=== PATIENT | female | born 1935 | race Caucasian/White ===

== ENCOUNTER 2023-02-15 11:13 | Day surgery (SDC) | payer OTHER ==
[2023-02-12 16:12] LABS: Potassium 3.7 mEq/L (3.5-5.1)
--- NOTE | 2023-02-12 16:54 | RAD REPORT ---
EXAM DESCRIPTION: Sri Koch And Wyatt (2 Views)02/12/2023 3:59 pm CLINICAL HISTORY: Lung cancer. Preop COMPARISON: None FINDINGS: Mild elevation left hemidiaphragm Lungs appear clear of acute infiltrate. The heart is normal size. Peribronchial thickening presumably chronic
[2023-02-15] MEDS ORDERED: CEFAZOLIN SODIUM 1 GM/VIAL ONE (11:43)
[2023-02-15] MEDS ORDERED: Ringers Lactate 1,000 ML IV ONE (11:43)
[2023-02-15] MEDS ORDERED: NS 0.9% VIAL 10 ML ONE (12:32)
[2023-02-15] MEDS ORDERED: HEPARIN 5000 UNIT/ML 1 ML VIAL ONE (12:32)
[2023-02-15] MEDS ORDERED: BUPIVACAINE 0.25% PF 10 ML VIAL ONE (12:32)
[2023-02-15] MEDS ORDERED: NA CHLORIDE 0.9% 50 ML ONE (12:33)
--- NOTE | 2023-02-15 13:54 | P.OP ---
Preoperative diagnosis: Need for Chemotherapy Access Postoperative diagnosis: Need for Chemotherapy Access Primary procedure: Placement of Port a Cath Secondary procedure: Flouroscopic guiance with interpretation Anesthesia: GETA + Local Estimated blood loss: <8cc Specimen: none Findings: dark, non-pulsatile blood, dehydrated vessels, pendulous tissue Complications: None Implants: Port a Cath Transferred to: Recovery Room Condition: Good
[2023-02-15] MEDS: HYDROMORPHONE HCL 1 MG/ML INJ ONE ×2 (14:15→14:25)
[2023-02-15 14:21] VITALS: O2SAT 100
[2023-02-15] MEDS ORDERED: ONDANSETRON 4 MG/2 ML VIAL ONE (14:26)
[2023-02-15 14:31] VITALS: TEMP 97.5
--- NOTE | 2023-02-15 14:36 | RAD REPORT ---
EXAM DESCRIPTION: RAD - Chest Single View - 02/15/2023 2:27 pm CLINICAL HISTORY: S/P PORT A CATH PLACEMENT Chest pain. COMPARISON: Chest Pa And Lat (2 Views) dated 02/12/2023 FINDINGS: Portable technique limits examination quality. Right-sided venous catheter has tip in the SVC. No postprocedure pneumothorax present. Moderate left lung interstitial lung opacities noted.
--- NOTE | 2023-02-15 14:57 | RAD REPORT ---
EXAM DESCRIPTION: RAD - Fluoroscopy <1 Hour - 02/15/2023 2:50 pm CLINICAL HISTORY: Venous catheter insertion. PORT INSERTION COMPARISON: No comparisons FINDINGS: Fluoroscopic imaging is submitted from placement of a venous catheter. Details of the pro cedure not available. Fluoroscopy time: 0.3 minutes
[2023-02-15 15:21] VITALS: BP 134/62
--- NOTE | 2023-02-15 17:11 | EKG ---
Test Date: 2023-02-12 Test Time: 15:09:30 Outside Plant Engineer: VIDA MEASUREMENT RESULTS: Intervals: Rate: 94 [place]: 158 QRSD: 90 QT: 358 QTc: 447 [place]: P: 46 [place]: 158 QRS: -51 T: -14 INTERPRETIVE STATEMENTS: Normal sinus rhythm RSR' or QR pattern in V1 suggests right ventricular conduction delay Left anterior fascicular block Voltage criteria for left ventricular hypertrophy Nonspecific ST and T wave abnormality Abnormal ECG No previous ECG available for comparison Electronically Signed On 02-15-23 17:05:54 CDT by Babak Jaimes
--- NOTE | 2023-02-16 00:34 | OP ---
Date of Procedure: 02/15/2023 Surgeon: Jacobo Jose MD, Preoperative Diagnosis: Need for chemotherapy access. Postoperative Diagnosis: Need for chemotherapy access. Procedure Performed: Placement of a Port-A-Cath using fluoroscopic guidance with interpretation. Anesthesia: General endotracheal plus local with 0.25% Marcaine. Estimated Blood Loss: 8 mL. Specimens: None. Findings: 1.Dark nonpulsatile blood returned throughout. 2.The patient appeared to have dehydration with flaccid blood vessels in her jugular veins. 3.Pendulous breast tissue. Complications: None. Implants: Port-A-Cath. Disposition: The patient was transferred to the recovery room in good condition. Procedure In Detail: After informed consent was obtained, the patient was brought to the operating r oom, prepped and draped in usual sterile fashion. After adequate anesthesia was achieved, I placed t he patient in steep Trendelenburg position. Using ultrasound, I inspected both jugular veins and fou nd them to be quite flat consistent with dehydration despite being placed in steep Trendelenburg posi tion. The anatomy was clear, however, the vessels appeared to be quite flat due to I suspect dehydra tion. At this point, I opted to use a subclavian approach. The patient remained in steep Trendelenb urg position and the patient was prepped and draped in the usual sterile fashion. After adequate ane sthesia was achieved, I anesthetized the area of the right deltopectoral groove in the subcutaneous t issues using a microintroducer set. I cannulated the subclavian vein on the right on the first attem pt using a microintroducer needle. At this point, microwire was advanced. Fluoroscopic interpretati on was performed at this point, confirmed the position of the wire in the SVC and into the right atri um. At this point, the microintroducer sheath was advanced and the microwire was removed and the sta ndard wire was advanced at this point and found to be into the right ventricle. It was backed up to an appropriate position, secured at this point. I then found a place on the chest wall appropriate f or placement of the Port-A-Cath as the patient had very large pendulous breasts that had quite a bit of redundancy, opted for position close to the insertion site. At this point, the skin was anestheti zed, sharply incised with a 15-blade, and I dissected down to the prepectoral fascia creating a tunne ling tract using electrocautery. Some of the abscess tissue was removed at this point. I then broug ht the tunneling device in and brought the catheter through the insertion site. At this point, the i ntroducer sheath was advanced over the wire using Seldinger technique at this point, and the wire was removed. At this point, a wire out was called. I then advanced the catheter into the introducer sh [facility] and into the SVC at this point using fluoroscopic guidance, the catheter was placed in the appro priate position at this point and the was removed. I then trimmed the catheter appropriat tracey and attached it with a lock color to the port at this point. The port was flushed at this point and flushed with saline quite easily without incident or complication. At this point, I then secured the Port-A-Cath to the chest wall prepectoral fascia using interrupted 2-0 Prolene sutures and the c atheter was tested again once being secured to the chest wall, and flushed quite easily. At this poi nt, I packed it with 2 mL of and irrigated the area. I then closed the deep dermal layer using 3-0 Vicryl suture and the skin was closed with a 4-0 Monocryl in a running fashion. Dermabond was placed over top. I also closed the insertion site using a single nylon suture of 2-0 size. After appropriately anesthetizing the skin, a sterile dressing was placed over top. The patie nt tolerated the procedure well without evidence of complication and transferred to PACU in good condition. All counts were correct at the end of the case. FLOYD/NORMAL Voice ID: [id number] Report ID: [id number]
== END 2023-02-15 15:21 | disposition home or self-care (01) ==
LOC: OR 11:13
PROVIDERS: ATTEND Surgery
PROC: 0JH60WZ Insertion of Totally Implantable Vascular Access Device into Chest Subcutaneous Tissue and Fascia, Open Approach (ICD-10-PCS; principal; 2023-02-15 14:15)
DX: C34.90 Malignant neoplasm of unspecified part of unspecified bronchus or lung (principal)
CPT/HCPCS: 93005; 80048; 36415; 71045; 71046; 36561; J1644 ×2; A4216; J1170; J2405; J7120; J0690; C1788; 76000